=== PATIENT | male | born 1995 | race Caucasian/White ===

== ENCOUNTER 2016-06-27 01:59 | Emergency (ER) | payer OTHER ==
[~2016-06-27] VITALS: Ht 182.9 cm; Wt 59.1 kg
[2016-06-27] MEDS ORDERED: ACETAMINOPHEN 325 MG TABLET ONE (02:27)
[2016-06-27] MEDS ORDERED: SODIUM CHLORIDE 0.9% 1,000ML IVBOLUS ONE ×2 (02:30→04:00)
[2016-06-27] MEDS ORDERED: ACETAMINOPHEN 325 MG TABLET PO ONE (02:30)
[2016-06-27 02:57] LABS: BLOOD UREA NITROGEN 15 mg/dL (7-18)
[2016-06-27 03:29] LABS: IS PT STATUS REG ER OR PRE ER? YES
[2016-06-27] MEDS ORDERED: AZITHROMYCIN 500 MG in SODIUM CHLORIDE 0.9% 250 ML IV ONE (04:00)
[2016-06-27] MEDS ORDERED: CEFTRIAXONE PMX 1GM/50ML 50 ML IVPB ONE (04:00)
[2016-06-27] MEDS ORDERED: KETOROLAC 30 MG/1 ML ONE (04:10)
[2016-06-27] MEDS ORDERED: CEFTRIAXONE PMX 1GM/50ML 50 ML ONE (04:12)
[2016-06-27] MEDS ORDERED: KETOROLAC 30 MG/1 ML IVPush ONE (04:30)
[2016-06-27 06:19] VITALS: BP 119/57
== END 2016-06-27 06:42 | disposition home or self-care (01) ==
LOC: ED 05:37
DX: J15.9 Unspecified bacterial pneumonia (principal); R50.9 Fever, unspecified; F17.200 Nicotine dependence, unspecified, uncomplicated
CPT/HCPCS: 36415; 71010; 80048; 82040; 83605; 84145; 84484; 85025; 87040; 93005; 96361; 96365; 96366; 96368; 96375; 99285; J0456; J0696; J1885; J7030; J7050